=== PATIENT | female | born 1995 | race Caucasian/White ===

== ENCOUNTER → 2016-08-18 | Day surgery (SDC) | payer MEDICAID ==
[2016-06-23 17:02] VITALS: BMI 37.8
[~2016-08-18] MED LIST: BUPIVACAINE 0.25% 30 ML VIAL ONE; CEFAZOLIN 1 GM VIAL ONE; DEXAMETHASONE 4 MG/ML VIAL IV ONE; FENTANYL 100 MCG/2 ML VIAL IV ONE; FENTANYL 100 MCG/2 ML VIAL IV PRN; FENTANYL 100 MCG/2 ML VIAL ONE; HYDROmorphone 1 MG INJECTION IV PRN; KETOROLAC TROMETH 30 MG/ML VIAL IM ONE; LABETALOL 20 MG/4 ML SYRINGE IV PRN; LIDOCAINE 100 MG PFS IV ONE; MEPERIDINE 25 MG/ML TUBEX IV PRN; MIDAZOLAM 2 MG/2 ML VIAL IV ONE; ONDANSETRON HCL 4 MG ODT TAB PO PRN; ONDANSETRON HCL 4 MG/2 ML VIAL IV ONE; ONDANSETRON HCL 4 MG/2 ML VIAL IV PRN; OXYCODONE HCL 5 MG TABLET ONE; PROMETHAZINE 25 MG/ML VIAL IV PRN; PROPOFOL 200 MG/20 ML VIAL IV ONE; hydrALAZINE 20 MG/ML VIAL IV PRN
[2016-08-18 07:04] LABS: BLOOD UREA NITROGEN 10 MG/DL (7-17); CALC CORRECTED 9.1 MG/DL (8.4-10.2); CALCIUM 8.9 MG/DL (8.4-10.2); CALCULATED OSMOLALITY 265 MOs/Kg (270-290); CHLORIDE 103 mEq/L (98-107); GLUCOSE 97 MG/DL (70-99); SODIUM LEVEL 138 mEq/L (137-146); TOTAL PROTEIN 7.7 G/DL (6.3-8.2)
[2016-08-18 07:05] LABS: MPV 8.3 fL (7.4-10.4)
[2016-08-18 07:06] LABS: LEUKOCYTES/URINE 1+ (NEGATIVE); NITRITE/URINE NEG (NEGATIVE); URINE OCCULT BLOOD 1+ (NEG/TRACE)
--- NOTE | 2016-08-18 07:40 | SC.ANESPOS ---
[id number], Hemodynamically Stable, Pain Control Adequate Phase I & II Recovery Complete: Yes Apparent Anesthesia Complication: No : N - Vital Signs Blood Pressure: 106/63 Pulse: 71 Resp Rate: 18 O2 Sat: 96 Temp: 97.3 F
--- NOTE | 2016-08-18 07:41 | HIM.ANES ---
Anesthesia Evaluation & Plan Diagnoses: HIDRADENITIS SUPPURATIVA (08/18/16) - Focused Review of Systems Cardiac History: No: Hx Cardiac Disorders HEENT: No: Other HEENT Problems Gastrointestinal: No: Hx Gastroesophageal Reflux Disease, Hx Gastrointestinal Disorders Neurological/Musculoskeletal: No: Hx Neurological Disorders Psychological: No Hx Mental/Emotional Disorders Blood/Autoimmune: No: Hx Blood Transfusions, Hx Anemia, Hx AIDS, Hx Hepatitis (type), Hx Sickle Cell Disease Smoking Status: Heavy tobacco smoker (5 or more cigarettes/day or daily pipe/ cigar) Surgical History: Yes: Cholecystectomy - Focused Physical Exam Mallampati: Class II Thyromental Distance: Greater than 3 Neck: Full Range of Motion Dental: Normal - no significant findings Cardiovascular/Chest: Normal Respiratory: Lungs clear Any problems with anesthesia, including nausea and vomiting?: No Beta Zakiya given (if appropriate): N/A Does the patient have a history of Motion Sickness-: No Other: Problem List Problem Status Onset False labor Active Vaginal delivery Active PT/PTT/INR/ Urine Test Neg (NEGATIVE) 08/18/16 06:45 CBC/BMP/Other 08/18/16 06:45 08/18/16 06:45 Allergies Allergy/AdvReac Type Severity Reaction Status Date / Time No Known Allergies Allergy Verified 08/17/16 19:54 Home Medications Medication Instructions Recorded Last Taken Type No Home Medications 08/17/16 Unknown History Height and Weight Patient's height 5 ft 2 in Patient's weight 207 lb BMI 37.8 Vital Signs Temperature 97.3 F L 08/18/16 07:40 Pulse Rate 71 08/18/16 07:40 Respiratory Rate 18 08/18/16 07:40 Blood Pressure 106/63 08/18/16 07:40 Pulse Oxygen Saturation 96 08/18/16 07:40 - Anesthetic Plan Anesthesia Type: General ASA Class: 2 -: I have examined this patient and reviewed the medical record. The patient has been assessed prior to anesthesia. Risks and benefits of anesthesia and anesthetic technique options have been discussed and all questions answered. The patient accepts the risk and desires me to proceed with the planned anesthetic.
--- NOTE | 2016-08-18 08:57 | HIMOPRPT ---
DATE OF PROCEDURE: 08/18/16 PREOPERATIVE DIAGNOSIS: Bilateral axillary hidradenitis suppurativa POSTOPERATIVE DIAGNOSIS: Same, final pathology pending PROCEDURES: Excision of bilateral axillary hidradenitis suppurativa with layered wound closures. SURGEON: Azael De La Rosa MD ANESTHESIA: General COMPLICATIONS: None. SPECIMENS: Bilateral axillary hidradenitis suppurativa and involved skin to pathology PACKINGS AND DRAINS: None. BLOOD LOSS: 3 cubic centimeters. OPERATIVE FINDINGS AND TECHNIQUE: With consent the patient was brought to the operating suite and placed in the supine position. Following general anesthesia , the axillary areas were prepped and draped in usual fashion. Left axillary area was identified 1st. The obvious hidradenitis suppurativa was identified. Elliptical incision was made to encompass the overlying skin changes. Dissection was carried down to the subcutaneous tissue. Generous portion of the subcutaneous tissue in the left axilla was excised and passed off as specimen with the overlying skin. Wound was irrigated and dried. Hemostasis had been achieved with cautery. Deep, subcutaneous, and subcuticular tissues were injected with 0.25% Marcaine. Deep tissues were then reapproximated using 2 0 Vicryl suture. Skin approximation was accomplished using 3 0 Prolene in an interrupted vertical mattress fashion. Vaseline gauze and dressings were applied. Right axillary area was then identified. There were 2 separate areas of hidradenitis suppurativa with skin changes. The 1st obvious area of hidradenitis suppurativa was identified. Elliptical incision was made to encompass the overlying skin changes. Dissection was carried down to the subcutaneous tissue. Generous portion of the subcutaneous tissue in the right axilla was excised and passed off as specimen with the overlying skin. Wound was irrigated and dried. Hemostasis had been achieved with cautery. Deep, subcutaneous, and subcuticular tissues were injected with 0.25% Marcaine. Deep tissues were then reapproximated using 2 0 Vicryl suture. Skin approximation was accomplished using 3 0 Prolene in an interrupted vertical mattress fashion. The 2nd area of obvious hidradenitis suppurativa was identified as well. This was a somewhat smaller area. An elliptical incision was made to encompass the overlying skin changes. Dissection was carried down to the subcutaneous tissue. Subcutaneous tissue and the overlying involve skin were excised and passed off as specimen. Wound was irrigated and dried. Hemostasis had been achieved with the cautery. Deep, subcutaneous, and subcuticular tissues were injected with 0.25% Marcaine. Deep tissues were reapproximated using 2 0 Vicryl suture. Skin approximation was accomplished using 3 0 Prolene in interrupted vertical mattress fashion. Vaseline gauze and dressings were applied.
[2016-08-18 17:38] VITALS: BP 106/63; PULSE 71; TEMP 97.3
== END ==
LOC: SDC 06:31
PROVIDERS: ATTEND Surgery Vascular Surgery
PROC: 0JBD0ZZ Excision of Right Upper Arm Subcutaneous Tissue and Fascia, Open Approach (ICD-10-PCS; 2016-08-18)
PROC: 0JBF0ZZ Excision of Left Upper Arm Subcutaneous Tissue and Fascia, Open Approach (ICD-10-PCS; principal; 2016-08-18 08:05)
DX: L73.2 Hidradenitis suppurativa (principal); F17.210 Nicotine dependence, cigarettes, uncomplicated; E66.01 Morbid (severe) obesity due to excess calories; Z68.41 Body mass index [BMI] 40.0-44.9, adult
CPT/HCPCS: 11450; 80053; 81001; 81025; 85027; J0690; J1100; J1885; J2001; J2250; J2405; J3010; J3490; S0020

== ENCOUNTER 2016-09-01 16:24 | Emergency (ER) | payer MEDICAID ==
[2016-09-01 16:32] VITALS: BP 134/80; PULSE 117; TEMP 97.8; BMI 39.4
--- NOTE | 2016-09-01 17:33 | EDPRACDOC ---
- General Information Chief Complaint: Wound Stated Complaint: OPEN WOUND -RECENT SX Time Seen by Provider: 09/01/16 16:45 Information Source: Patient Mode Of Arrival: Car Home Medications: Home Medications Promethazine HCl 12.5 mg PO Q6H PRN 09/01/16 Allergies/Adverse Reactions: Allergies Allergy/AdvReac Type Severity Reaction Status Date / Time No Known Allergies Allergy Verified 08/18/16 07:40 - History of Present Illness Onset: 1 DAY Wound Location: axillae Wound Type: Other (postsurgical dehiscence) Wound Discharge: Other (mild, purulent) Previously Treated In: Surgery Current Wound Treatment: Other (sutures removed yesterday by surgeon, pt stated that she is having dehiscence) ED Past Medical History - History Reviewed Yes Nurses notes reviewed and agree except as marked - Patient Medical History Psychological History: Denies: Depression Systemic History: Denies: Cancer, Anemia, Lupus Surgical History: Reports: Cholecystectomy - Family Medical History Reports: Hypertension (DAD), Diabetes, Cancer (MOMS SIDE), Cardiac Disorders ( MGM) - Social Medical History Smoking Status: Heavy tobacco smoker (5 or more cigarettes/day or daily pipe/ cigar) - Physical Exam Constitutional: No apparent distress, Alert Last recorded Vital Signs: Last Vital Signs Temp 97.8 F 09/01/16 16:26 Pulse 117 09/01/16 16:26 Resp 20 09/01/16 16:26 BP 134/80 09/01/16 16:26 Pulse Ox 97 09/01/16 16:26 Oxygen Pulse Oxygen Saturation 97 O2 Device Room Air Oxygen Flow Rate Fraction of Inspired Oxygen ( FIO2) - HEENT Head: Normal ( normocephalic) - Respiratory/Cardiovascular Respiratory: negative: Accessory Muscle Use, Wheezes - Musculoskeletal Back: Normal - Integumentary Skin: Other (postsurgical wounds are present upon both axillae. there are areas of dehiscence throughout both wounds. there is a mild purulent exudate of the L axillary wound.) - Neurologic Memory Impaired: Normal Motor Function: Normal (Normal tone, Pulses 2+ No cyanosis or edema, FROM) Cranial Nerve: Normal (CN II-X11 intact sensation, strength 5/5) Cerebellar: Normal Mood Description: Normal Perception: Normal ED Wound Check Exam - Wound Detail Healing: Well Discharge: Purulent, Other (mild, L axilla) Erythema: None - Additional Information i reviewed the surg note Decision Time to Discharge: 17:38 - Departure Yes I personally saw and evaluated the patient. Disposition: Home Condition: Good Final Diagnosis: Dehiscence of closure of skin Qualifiers: Encounter type: initial encounter Qualified Code(s): T81.31XA - Disruption of external operation (surgical) wound, not elsewhere classified, initial encounter Education/Counseling Given To: Patient Education/Counseling Given Regarding: Diagnosis, Treatment, Prognosis, Follow Up Referrals: Azael De La Rosa MD [Staff Physician] - One Week Prescriptions: No Action Promethazine HCl 12.5 mg PO Q6H PRN PRN Reason: Nausea/Vomiting - Physician Consulted Surgery Time Called: 17:32 Provider Called: Azael De La Rosa Consult Reason: i discussed the pt's visit with him. he was aware of the dehiscence. he suggested that these wounds can take weeks, perhaps even months to heal. he suggested antibiotic ointment and gauze over the wounds. he said that pt can shower.
== END 2016-09-01 17:47 | disposition home or self-care (01) ==
LOC: ED 16:24
DX: T81.31XA Disruption of external operation (surgical) wound, not elsewhere classified, initial encounter (principal); Y83.9 Surgical procedure, unspecified as the cause of abnormal reaction of the patient, or of later complication, without mention of misadventure at the time of the procedure
CPT/HCPCS: 99283